=== PATIENT | female | born 1995 | race Caucasian/White ===

== ENCOUNTER 2022-06-15 04:58 | Emergency (ER) | payer OTHER ==
[~2022-06-15] VITALS: Ht 165.1 cm; Wt 49.0 kg
[2022-06-15] MEDS ORDERED: ADVIL200 MG (05:15)
[2022-06-15] MEDS ORDERED: PROTONIX20 MG (05:15)
== END 2022-06-15 10:24 | disposition home or self-care (01) ==
LOC: ER 04:58
DX: R11.10 Vomiting, unspecified (principal); R10.13 Epigastric pain

== ENCOUNTER 2022-10-14 07:15 | Emergency (ER) | payer OTHER ==
[~2022-10-14] VITALS: Ht 165.1 cm; Wt 52.2 kg
[~2022-10-14 07:15] MED LIST: ADVIL200 MG; PROTONIX20 MG
== END 2022-10-14 10:42 | disposition home or self-care (01) ==
LOC: ER 07:15
DX: K29.70 Gastritis, unspecified, without bleeding (principal)

== ENCOUNTER 2023-05-06 14:50 | Emergency (ER) | payer OTHER ==
[~2023-05-06] VITALS: Ht 160 cm; Wt 54.4 kg
[2023-05-06] MEDS ORDERED: QVAR REDIHALE10.6 G1 (15:01)
[2023-05-06] MEDS ORDERED: MAALOX MAXIMUM355 ML PO (15:01)
== END 2023-05-06 15:48 | disposition home or self-care (01) ==
LOC: ER 14:50
DX: S61.211A Laceration without foreign body of left index finger without damage to nail, initial encounter (principal); W26.0XXA Contact with knife, initial encounter; Y93.G3 Activity, cooking and baking; Y92.010 Kitchen of single-family (private) house as the place of occurrence of the external cause; Y99.9 Unspecified external cause status

== ENCOUNTER 2023-05-12 06:46 | Emergency (ER) | payer OTHER ==
[~2023-05-12] VITALS: Ht 165.1 cm; Wt 53.1 kg
[~2023-05-12 06:46] MED LIST changes: +MAALOX MAXIMUM355 ML PO; +QVAR REDIHALE10.6 G1
== END 2023-05-12 14:24 | disposition home or self-care (01) ==
LOC: ER 06:46
DX: B36.9 Superficial mycosis, unspecified (principal); H62.42 Otitis externa in other diseases classified elsewhere, left ear; R42 Dizziness and giddiness; R11.2 Nausea with vomiting, unspecified

== ENCOUNTER → 2023-11-27 | Emergency (ER) | payer OTHER ==
[~2023-11-27] VITALS: Ht 165.1 cm; Wt 51.7 kg
== END | disposition left against medical advice (07) ==
LOC: ER 01:37
DX: Z53.21 Procedure and treatment not carried out due to patient leaving prior to being seen by health care provider (principal)

== ENCOUNTER → 2025-01-27 | Emergency (ER) | payer OTHER ==
[~2025-01-27] VITALS: Ht 165.1 cm; Wt 51.7 kg
[~2025-01-27] MED LIST changes: +CEFTRIAXONE SODIUM 1,000 MG VIAL IM STA; +CEFTRIAXONE SODIUM 1,000 MG VIAL ONE; +KETOROLAC TROMETHAMINE 60 MG VIAL IM ONE; +KETOROLAC TROMETHAMINE 60 MG VIAL IM STA; +LIDOCAINE HCL 1% 10ML VIAL ONE
== END | disposition home or self-care (01) ==
LOC: ER 08:07
DX: H60.8X2 Other otitis externa, left ear (principal); J31.0 Chronic rhinitis

== ENCOUNTER 2025-05-04 04:34 | Emergency (ER) | payer OTHER ==
[~2025-05-04] VITALS: Ht 165.1 cm; Wt 51.7 kg
[~2025-05-04 04:34] MED LIST changes: -CEFTRIAXONE SODIUM 1,000 MG VIAL IM STA; -CEFTRIAXONE SODIUM 1,000 MG VIAL ONE; -KETOROLAC TROMETHAMINE 60 MG VIAL IM ONE; -KETOROLAC TROMETHAMINE 60 MG VIAL IM STA; -LIDOCAINE HCL 1% 10ML VIAL ONE
[2025-05-04] MEDS ORDERED: CLARITIN10 M1 (04:38)
[2025-05-04] MEDS ORDERED: LIDOCAINE HCL 50 ML BOTT TOP STA (05:11)
[2025-05-04] MEDS ORDERED: ONDANSETRON HCL 2 MG/ML VIAL IV STA (05:12)
[2025-05-04] MEDS ORDERED: KETOROLAC TROMETHAMINE 60 MG VIAL IM STA (05:12)
[2025-05-04] MEDS ORDERED: FAMOtidine 10 MG/ML (4ML VIAL) IV PUSH STA (05:13)
[2025-05-04] MEDS ORDERED: CEFTRIAXONE SODIUM 1,000 MG VIAL IM STA (05:30)
== END 2025-05-04 05:48 | disposition home or self-care (01) ==
LOC: ER 04:34
DX: H92.01 Otalgia, right ear (principal)